=== PATIENT | male | born 1970 | race Caucasian/White ===

== ENCOUNTER 2020-11-12 14:26 | Emergency (ER) | payer OTHER, BC ==
[~2020-11-12] VITALS: Ht 177.8 cm; Wt 102.3 kg
[2020-11-12] MEDS ORDERED: HYDROMORPHONE HCL 0.5 MG/ 0.5 ML SYRINGE (J1170 PER 1) IV PRN (15:25)
[2020-11-12] MEDS ORDERED: KETOROLAC 30 MG/ML 1ML VIAL IV ONE (15:25)
[2020-11-12] MEDS ORDERED: NS 1,000 ML IV SCH (15:40)
[2020-11-12] MEDS ORDERED: propofoL 200 MG/20 ML VIAL IV.PROC PRN (15:55)
--- NOTE | 2020-11-12 15:58 | REP ---
INDICATION: trauma COMPARISON: None. TECHNIQUE: Single axillary view of the right shoulder FINDINGS: No obvious acute fracture or dislocation. Surrounding soft tissues are normal. IMPRESSION: No acute fracture or dislocation appreciated. <Electronically signed by Wicho King > 11/12/20 [id number]
--- NOTE | 2020-11-12 15:59 | REP ---
INDICATION: trauma COMPARISON: None. TECHNIQUE: Three views of the right elbow. FINDINGS: Acute fracture dislocation at the elbow joint with multiple fracture fragments. Further detail is somewhat limited due to positioning. However, fracture fragment seemed to be from the radial head and possibly proximal portion of the ulna. IMPRESSION: Fracture dislocation of the right elbow. <Electronically signed by Wicho King > 11/12/20 [id number]
--- NOTE | 2020-11-12 16:33 | REP ---
INDICATION: s/p reduction. COMPARISON: 11/12/2020 at 9 minutes past 3 p.m. and again at 3:36 p.m. TECHNIQUE: Total of 3 images were obtained. The 1st image an AP view was obtained at 4:10 p.m. the 2nd image a lateral view was obtained at 4:11 p.m. the 3rd image is a lateral view obtained at 4:18 p.m. FINDINGS: The 1st 2 images again show a comminuted fracture posterior dislocation of the elbow centrally unchanged from earlier today. The 3rd image shows the posterior dislocation to be reduced. Comminuted fracture is again noted and unchanged. There is a marked insignificant joint effusion unchanged. IMPRESSION: Reduction seen only on the 3rd image as described above. CT is recommended. <Electronically signed by Long Chilel > 11/12/20 2016
--- NOTE | 2020-11-12 17:06 | REP ---
INDICATION: trauma. COMPARISON: None. TECHNIQUE: Axial noncontrast images through the elbow with coronal and sagittal reformations. FINDINGS: Fracture fragments are identified arising from the radial head, coronoid process, and presumed from the medial humeral condyle. Surrounding soft tissue swelling and joint effusion noted. IMPRESSION: Comminuted fracture at the elbow with soft tissue swelling. <Electronically signed by Wicho King > 11/12/20 [id number]
[2020-11-12] MEDS ORDERED: HYDR-3713 PO (17:42)
[2020-11-12 17:59] VITALS: BP 182/83
== END 2020-11-12 18:37 | disposition home or self-care (01) ==
LOC: M ED 14:26 → EDBD 14:26 → M ED 18:37
DX: S53.104A Unspecified dislocation of right ulnohumeral joint, initial encounter (principal); S42.401A Unspecified fracture of lower end of right humerus, initial encounter for closed fracture; W11.XXXA Fall on and from ladder, initial encounter; Y92.149 Unspecified place in prison as the place of occurrence of the external cause; Y93.9 Activity, unspecified; Y99.0 Civilian activity done for income or pay
CPT/HCPCS: 24600; 73030; 73070; 73080; 73200; 93041; 94760; 96361; 96374; 96375; 99291; J1170; J1885

== ENCOUNTER → 2020-11-18 | Outpatient (CLI) | payer OTHER, BC ==
[~2020-11-18] MED LIST: HYDR-3713 PO
--- NOTE | 2020-11-19 06:03 | ECGEPIP ---
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
== END ==
LOC: M EKG 16:56
PROVIDERS: ATTEND Orthopaedic Surgery
DX: Z01.818 Encounter for other preprocedural examination (principal)

== ENCOUNTER → 2022-03-30 | Outpatient (REF) | payer OTHER, BC ==
[2022-03-30 12:41] LABS: HEMATOCRIT 43.2 % (42.0-52.0); HEMOGLOBIN 13.8 g/dl (13.5-17.5); MEAN CORPUSCULAR HEMOGLOBIN 29.7 pg (27.0-33.0); MEAN CORPUSCULAR HGB CONC 31.9 g/dl (32.0-36.5); MEAN CORPUSCULAR VOLUME 92.9 fl (80.0-96.0); PLATELET COUNT, AUTOMATED 193 10^3/uL (150-450); RED BLOOD COUNT 4.65 10^6/uL (4.30-6.10)
[2022-03-30 13:33] LABS: ALT/SGPT 27 U/L (12-78); BILIRUBIN,TOTAL 0.6 MG/DL (0.2-1.0); BLOOD UREA NITROGEN 16 MG/DL (7-18); CALCIUM LEVEL 9.1 MG/DL (8.5-10.1); CARBON DIOXIDE LEVEL 25 MEQ/L (21-32); CHLORIDE LEVEL 107 MEQ/L (98-107); CREATININE FOR GFR 1.11 MG/DL (0.70-1.30); GLOMERULAR FILTRATION RATE > 60.0 (>56); GLUCOSE, FASTING 110 MG/DL (70-100); POTASSIUM SERUM 4.7 MEQ/L (3.5-5.1); SODIUM LEVEL 139 MEQ/L (136-145); TOTAL PROTEIN 6.9 GM/DL (6.4-8.2)
== END ==
LOC: M LABDRAWC 11:28
PROVIDERS: ATTEND Student in an Organized Health Care Education/Training Program
DX: Z01.812 Encounter for preprocedural laboratory examination (principal)

== ENCOUNTER → 2022-03-30 | Outpatient (REF) | payer OTHER, BC | LOC: M LABDRAWC 11:25 | PROVIDERS: ATTEND Internal Medicine Endocrinology, Diabetes & Metabolism | DX: D35.02 Benign neoplasm of left adrenal gland (principal) ==

== ENCOUNTER → 2022-06-24 | Outpatient (REF) | payer OTHER ==
[2022-06-24 12:19] LABS: ALBUMIN 4.5 G/DL (3.2-5.2); ALKALINE PHOSPHATASE 59 U/L (46-116); ALT/SGPT 27 U/L (7.0-40); AST/SGOT 19 U/L (<34); BILIRUBIN,TOTAL 0.5 MG/DL (0.3-1.2); BLOOD UREA NITROGEN 13 MG/DL (9-23); CALCIUM LEVEL 9.8 MG/DL (8.5-10.1); CARBON DIOXIDE LEVEL 28 MMOL/L (20-31); CHLORIDE LEVEL 107 MMOL/L (98-107); CHOLESTEROL LEVEL 191 MG/DL (<200); CHOLESTEROL RISK RATIO 2.47 (<5); GLOMERULAR FILTRATION RATE > 60.0 (>56); GLUCOSE, FASTING 94 MG/DL (60-100); HDL CHOLESTEROL 77.3 MG/DL (>40); LDL CHOLESTEROL 102.9 MG/DL (<100); NON-HDL-C 114 MG/DL; POTASSIUM SERUM 4.7 MMOL/L (3.5-5.1); SODIUM LEVEL 142 MMOL/L (136-145); TOTAL PROTEIN 7.2 G/DL (5.7-8.2); TRIGLYCERIDES LEVEL 54 MG/DL (<150)
== END ==
LOC: M SFHCCLAY 09:20
PROVIDERS: ATTEND Nurse Practitioner Family
DX: Z90.49 Acquired absence of other specified parts of digestive tract (principal); Z87.19 Personal history of other diseases of the digestive system; N28.1 Cyst of kidney, acquired; E27.8 Other specified disorders of adrenal gland; Z80.42 Family history of malignant neoplasm of prostate
CPT/HCPCS: 80053; 80061; G0103

== ENCOUNTER → 2023-01-12 | Outpatient (CLI) | payer BC, OTHER ==
[~2023-01-12] MED LIST changes: +ISOVUE-370 76% 100ML VIAL As Ordered ONE
== END ==
LOC: M RAD 16:17
PROVIDERS: ATTEND Urology
DX: N28.1 Cyst of kidney, acquired (principal); E27.8 Other specified disorders of adrenal gland
CPT/HCPCS: 74178; Q9967

== ENCOUNTER → 2023-06-23 | Outpatient (REF) | payer BC, OTHER ==
[~2023-06-23] MED LIST changes: -ISOVUE-370 76% 100ML VIAL As Ordered ONE
[2023-06-23 18:43] LABS: ALBUMIN 4.2 G/DL (3.2-5.2); ALKALINE PHOSPHATASE 61 U/L (46-116); ALT/SGPT 25 U/L (7.0-40); AST/SGOT 19 U/L (<34); BILIRUBIN,TOTAL 0.7 MG/DL (0.3-1.2); BLOOD UREA NITROGEN 18 MG/DL (9-23); CALCIUM LEVEL 9.2 MG/DL (8.5-10.1); CARBON DIOXIDE LEVEL 28 MMOL/L (20-31); CHLORIDE LEVEL 107 MMOL/L (98-107); CHOLESTEROL LEVEL 177 MG/DL (<200); CHOLESTEROL RISK RATIO 2.49 (<5); CREATININE FOR GFR 1.03 MG/DL (0.70-1.30); GLOMERULAR FILTRATION RATE > 60.0 (>56); GLUCOSE, FASTING 102 MG/DL (60-100); POTASSIUM SERUM 4.6 MMOL/L (3.5-5.1); SODIUM LEVEL 140 MMOL/L (136-145); TOTAL PROTEIN 6.7 G/DL (5.7-8.2); TRIGLYCERIDES LEVEL 70 MG/DL (<150)
== END ==
LOC: M SFHCCLAY 09:26
PROVIDERS: ATTEND Nurse Practitioner Family
DX: N28.1 Cyst of kidney, acquired (principal); E27.8 Other specified disorders of adrenal gland; Z80.42 Family history of malignant neoplasm of prostate; Z87.19 Personal history of other diseases of the digestive system; Z90.49 Acquired absence of other specified parts of digestive tract

== ENCOUNTER 2023-11-10 03:00 | Inpatient (IN) | payer BC, OTHER ==
[2023-11-10] VITALS (7 sets, daily range): BP systolic 107–141; BP diastolic 68–88; TEMP 97–100.5; O2SAT 93–96
[~2023-11-10] VITALS: Ht 177.8 cm; Wt 106.6 kg
[2023-11-10] MEDS ORDERED: ONDANSETRON 4MG 2ML VIAL As Ordered ONE (04:05)
[2023-11-10] MEDS ORDERED: MORPHINE 4 MG/ML 1ML VIAL As Ordered ONE (04:05)
[2023-11-10 04:09] LABS: BASO % 0.2 % (0.0-1.0); HEMATOCRIT 41.7 % (42.0-52.0); HEMOGLOBIN 14.6 g/dl (13.5-17.5); LYMPH # 0.7 10^3/uL (1.5-5.0); LYMPH % 5.1 % (24.0-44.0); MEAN CORPUSCULAR HEMOGLOBIN 30.6 pg (27.0-33.0); MEAN CORPUSCULAR VOLUME 87.4 fl (80.0-96.0); MONO % 7.3 % (2.0-8.0); NEUTROPHILS # 11.9 10^3/uL (1.5-8.5); NEUTROPHILS % 87.1 % (36.0-66.0); PLATELET COUNT, AUTOMATED 200 10^3/uL (150-450); RED BLOOD COUNT 4.77 10^6/uL (4.30-6.10); WHITE BLOOD COUNT 13.6 10^3/uL (4.0-10.0)
[2023-11-10 04:15] LABS: ALKALINE PHOSPHATASE 67 U/L (46-116); ALT/SGPT 29 U/L (7.0-40); AST/SGOT 43 U/L (<34); BILIRUBIN,DIRECT 0.3 MG/DL (<0.4); BILIRUBIN,TOTAL 1.2 MG/DL (0.3-1.2); BLOOD UREA NITROGEN 12 MG/DL (9-23); CALCIUM LEVEL 8.4 MG/DL (8.5-10.1); CARBON DIOXIDE LEVEL 23 MMOL/L (20-31); CHLORIDE LEVEL 100 MMOL/L (98-107); CREATININE FOR GFR 0.87 MG/DL (0.70-1.30); GLOMERULAR FILTRATION RATE > 60.0 (>56); GLUCOSE, FASTING 151 MG/DL (60-100); LIPASE 32 U/L (12-53); POTASSIUM SERUM 5.4 MMOL/L (3.5-5.1); SODIUM LEVEL 133 MMOL/L (136-145)
[2023-11-10] MEDS: MORPHINE 4 MG/ML 1ML VIAL IV ONE ×2 (04:15→10:28)
[2023-11-10] MEDS: ONDANSETRON 4MG 2ML VIAL IV ONE ×2 (04:15→10:28)
[2023-11-10] MEDS ORDERED: ISOVUE-370 76% 100ML VIAL As Ordered ONE (10:02)
[2023-11-10] MEDS: PIPERACILLIN/TAZOBACTAM SOD 3.375 GM in D5W MINI-BAG PLUS 50 ML IV ONE (10:52)
[2023-11-10] MEDS: NS 1,000 ML IV ONE (10:52)
[2023-11-10] MEDS: ACETAMINOPHEN *IV* 1,000 MG in IV 1 EA IV ONE (10:53)
[2023-11-10] MEDS ORDERED: ONDANSETRON 4MG 2ML VIAL IV PRN (12:05)
[2023-11-10] MEDS ORDERED: ACETAMINOPHEN TAB 650MG DOSE (2X325MG) PO PRN (12:05)
[2023-11-10] MEDS ORDERED: PERCOCET 5MG/325MG TAB PO PRN (13:20)
[2023-11-10] MEDS: NS 1,000 ML IV SCH (13:53)
[2023-11-10] MEDS: PERCOCET 5MG/325MG TAB PO PRN (13:55)
[2023-11-10] MEDS: MORPHINE 2 MG/ML 1ML VIAL IV PRN (15:12)
[2023-11-10] MEDS: NS 500 ML IV ONE (15:12)
[2023-11-10] MEDS ORDERED: HOME MED LIST COMPLETE! XX SCH (15:20)
[2023-11-10 15:45] LABS: PROCALCITONIN 0.07 ng/ml
[2023-11-10 15:53] LABS: HEPATITIS B SURFACE ANTIGEN NEGATIVE (NEGATIVE)
[2023-11-10 16:14] LABS: HEPATITIS B CORE ANTIBODY IGM NEGATIVE (NEGATIVE); HEPATITIS C VIRUS ABY INDEX 0.06 INDEX (<0.8)
[2023-11-10] MEDS: PIPERACILLIN/TAZOBACTAM SOD 3.375 GM in D5W MINI-BAG PLUS 50 ML IV SCH (17:00)
[2023-11-10] MEDS: ZOSYN 3.375GM VIAL As Ordered ONE (17:13)
[2023-11-10] MEDS ORDERED: fentaNYL 100 MCG/2 ML INJECTION As Ordered ONE (17:31)
[2023-11-10] MEDS ORDERED: MIDAZOLAM INJ 2MG/2ML VIAL As Ordered ONE (17:31)
[2023-11-10] MEDS ORDERED: ACETAMINOPHEN 1000MG 100ML IV BAG As Ordered ONE (17:31)
[2023-11-10] MEDS ORDERED: dexmedeTOMIDine (4MCG/ML)200MCG/50ML BTL (PRECEDEX) As Ordered ONE (17:31)
[2023-11-10] MEDS ORDERED: LIDOCAINE 2% 100MG/5ML SDV (FOR ANES.) As Ordered ONE (17:31)
[2023-11-10] MEDS ORDERED: propofoL 200 MG/20 ML VIAL As Ordered ONE (17:31)
[2023-11-10] MEDS ORDERED: ROCURONIUM BROMIDE 50MG/5ML VIAL As Ordered ONE (17:31)
[2023-11-10] MEDS ORDERED: HYDROmorphone HCL 2MG/ML 1ML VIAL As Ordered ONE (18:11)
[2023-11-10] MEDS ORDERED: SUGAMMADEX SODIUM 500 MG/5 ML VIAL (BRIDION) As Ordered ONE (18:38)
[2023-11-10] MEDS ORDERED: KETOROLAC 60MG 2ML VIAL As Ordered ONE (18:38)
[2023-11-10] MEDS ORDERED: oxyCODONE 5MG TAB PO PRN (19:00)
[2023-11-10] MEDS: ACETAMINOPHEN *IV* 1,000 MG in IV 1 EA IV SCH (21:13)
[2023-11-11] VITALS (8 sets, daily range): BP systolic 99–142; BP diastolic 61–85; TEMP 97.4–100.2; O2SAT 92–96
[2023-11-11 05:59] LABS: HEMATOCRIT 39.3 % (42.0-52.0); HEMOGLOBIN 13.2 g/dl (13.5-17.5); MEAN CORPUSCULAR HEMOGLOBIN 30.2 pg (27.0-33.0); MEAN CORPUSCULAR HGB CONC 33.6 g/dl (32.0-36.5); MEAN CORPUSCULAR VOLUME 89.9 fl (80.0-96.0); PLATELET COUNT, AUTOMATED 146 10^3/uL (150-450); RED BLOOD COUNT 4.37 10^6/uL (4.30-6.10); WHITE BLOOD COUNT 7.7 10^3/uL (4.0-10.0)
[2023-11-11 06:40] LABS: ATYPICAL LYMPH 2 % (0-5); LYMPHOCYTES 10 % (16-44); METAMYELOCYTES 1 % (0-0); MONOCYTES 3 % (0-5); NEUTROPHILS 65 % (28-66)
[2023-11-11 06:42] LABS: PLATELET CLUMPS SMALL AMT; PLATELET ESTIMATE NORMAL (NORMAL)
[2023-11-11 06:52] LABS: ALBUMIN 2.5 G/DL (3.2-5.2); ALKALINE PHOSPHATASE 48 U/L (46-116); ALT/SGPT 15 U/L (7.0-40); AST/SGOT 9 U/L (<34); BILIRUBIN,DIRECT 0.6 MG/DL (<0.4); BLOOD UREA NITROGEN 13 MG/DL (9-23); CALCIUM LEVEL 7.9 MG/DL (8.5-10.1); CARBON DIOXIDE LEVEL 25 MMOL/L (20-31); CHLORIDE LEVEL 106 MMOL/L (98-107); CREATININE FOR GFR 0.98 MG/DL (0.70-1.30); GLOMERULAR FILTRATION RATE > 60.0 (>56); GLUCOSE, FASTING 111 MG/DL (60-100); MAGNESIUM LEVEL 1.6 MG/DL (1.8-2.4); POTASSIUM SERUM 4.2 MMOL/L (3.5-5.1); SODIUM LEVEL 138 MMOL/L (136-145)
[2023-11-11] MEDS ORDERED: ENOXAPARIN 40MG/0.4ML SYRINGE (J1650 PER 10MG) SC SCH (09:00)
[2023-11-11] MEDS: MAG SULF 1GM/100ML (MAG RUN) 1 GM in IV 1 EA IV SCH (09:14)
[2023-11-11] MEDS: ENOXAPARIN 40MG/0.4ML SYRINGE (J1650 PER 10MG) SC SCH (12:33)
[2023-11-12 06:10] VITALS: BP 135/87; TEMP 99.3; O2SAT 94
[2023-11-12 06:25] LABS: BASO % 0.1 % (0.0-1.0); EOS % 0.4 % (0.0-3.0); HEMOGLOBIN 12.1 g/dl (13.5-17.5); LYMPH # 0.5 10^3/uL (1.5-5.0); LYMPH % 7.5 % (24.0-44.0); MEAN CORPUSCULAR HGB CONC 33.6 g/dl (32.0-36.5); MEAN CORPUSCULAR VOLUME 89.3 fl (80.0-96.0); MONO # 0.4 10^3/uL (0.0-0.8); MONO % 5.9 % (2.0-8.0); NEUTROPHILS # 6.1 10^3/uL (1.5-8.5); NEUTROPHILS % 85.8 % (36.0-66.0); PLATELET COUNT, AUTOMATED 147 10^3/uL (150-450); RED BLOOD COUNT 4.03 10^6/uL (4.30-6.10); WHITE BLOOD COUNT 7.1 10^3/uL (4.0-10.0)
[2023-11-12 07:21] LABS: ALBUMIN 2.3 G/DL (3.2-5.2); ALKALINE PHOSPHATASE 56 U/L (46-116); ALT/SGPT 22 U/L (7.0-40); AST/SGOT 19 U/L (<34); BILIRUBIN,DIRECT 0.3 MG/DL (<0.4); BILIRUBIN,TOTAL 0.6 MG/DL (0.3-1.2); BLOOD UREA NITROGEN 22 MG/DL (9-23); CALCIUM LEVEL 7.8 MG/DL (8.5-10.1); CARBON DIOXIDE LEVEL 23 MMOL/L (20-31); CHLORIDE LEVEL 108 MMOL/L (98-107); CREATININE FOR GFR 0.95 MG/DL (0.70-1.30); GLOMERULAR FILTRATION RATE > 60.0 (>56); GLUCOSE, FASTING 122 MG/DL (60-100); MAGNESIUM LEVEL 2.1 MG/DL (1.8-2.4); POTASSIUM SERUM 3.7 MMOL/L (3.5-5.1); SODIUM LEVEL 138 MMOL/L (136-145); TOTAL PROTEIN 4.9 G/DL (5.7-8.2)
[2023-11-12 14:00] VITALS: BP 134/90; TEMP 98.8; O2SAT 95
[2023-11-12 20:00] VITALS: BP 137/90; TEMP 99.5; O2SAT 98
[2023-11-12] MEDS: SIMETHICONE 80MG CHEW TAB PO PRN (20:11)
[2023-11-12] MEDS: PANTOPRAZOLE 40MG TAB (PROTONIX) PO ONE (23:31)
[2023-11-13 04:00] VITALS: BP 144/89; TEMP 98.8; O2SAT 95
[2023-11-13 06:57] LABS: BASO % 0.3 % (0.0-1.0); EOS # 0.1 10^3/uL (0.0-0.5); EOS % 0.7 % (0.0-3.0); HEMATOCRIT 29.1 % (42.0-52.0); LYMPH # 0.6 10^3/uL (1.5-5.0); LYMPH % 8.3 % (24.0-44.0); MEAN CORPUSCULAR HEMOGLOBIN 30.5 pg (27.0-33.0); MEAN CORPUSCULAR HGB CONC 33.7 g/dl (32.0-36.5); MEAN CORPUSCULAR VOLUME 90.7 fl (80.0-96.0); MONO # 0.6 10^3/uL (0.0-0.8); NEUTROPHILS # 5.7 10^3/uL (1.5-8.5); PLATELET COUNT, AUTOMATED 200 10^3/uL (150-450); RED BLOOD COUNT 3.21 10^6/uL (4.30-6.10); WHITE BLOOD COUNT 7.1 10^3/uL (4.0-10.0)
[2023-11-13 06:59] LABS: HEMOGLOBIN 9.8 g/dl (13.5-17.5)
[2023-11-13 07:18] LABS: C REACTIVE PROTEIN QUANTITATIV 17.5 MG/DL (<1.0)
[2023-11-13 07:20] LABS: ALBUMIN 2.1 G/DL (3.2-5.2); BILIRUBIN,DIRECT 0.1 MG/DL (<0.4); BILIRUBIN,TOTAL 0.3 MG/DL (0.3-1.2); TOTAL PROTEIN 4.5 G/DL (5.7-8.2)
[2023-11-13 07:31] LABS: BLOOD UREA NITROGEN 31 MG/DL (9-23); CALCIUM LEVEL 7.4 MG/DL (8.5-10.1); CARBON DIOXIDE LEVEL 24 MMOL/L (20-31); CHLORIDE LEVEL 110 MMOL/L (98-107); CREATININE FOR GFR 0.83 MG/DL (0.70-1.30); GLOMERULAR FILTRATION RATE > 60.0 (>56); GLUCOSE, FASTING 114 MG/DL (60-100); MAGNESIUM LEVEL 1.9 MG/DL (1.8-2.4); SODIUM LEVEL 140 MMOL/L (136-145)
[2023-11-13] MEDS ORDERED: ACET1TAB55 PO (08:31)
[2023-11-13] MEDS ORDERED: METR-265 PO ×2 (08:31→08:57)
[2023-11-13] MEDS ORDERED: CIPR-249 PO (08:32)
[2023-11-13] MEDS ORDERED: PANT40TA29 PO (08:57)
[2023-11-13] MEDS ORDERED: PROBCAP14 PO (08:57)
[2023-11-13] MEDS: PANTOPRAZOLE 40MG TAB (PROTONIX) PO SCH (09:11)
== END 2023-11-13 12:25 | disposition home or self-care (01) | DRG 710 ==
LOC: M ED 03:00 → M ED INP 11:55 → M PCU 12:57 → M MSPAV 11-11 18:50
PROVIDERS: ADMIT Internal Medicine; ATTEND Internal Medicine
PROC: 0DNW0ZZ Release Peritoneum, Open Approach (ICD-10-PCS; 2023-11-10)
PROC: 0DTJ0ZZ Resection of Appendix, Open Approach (ICD-10-PCS; principal; 2023-11-10 12:30)
DX: A41.9 Sepsis, unspecified organism (principal); K35.31 Acute appendicitis with localized peritonitis and gangrene, without perforation; K21.9 Gastro-esophageal reflux disease without esophagitis; Z53.31 Laparoscopic surgical procedure converted to open procedure; K66.0 Peritoneal adhesions (postprocedural) (postinfection); K57.90 Diverticulosis of intestine, part unspecified, without perforation or abscess without bleeding; Z87.891 Personal history of nicotine dependence; K35.32 Acute appendicitis with perforation, localized peritonitis, and gangrene, without abscess

== ENCOUNTER → 2024-06-25 | Outpatient (REF) | payer BC ==
[~2024-06-25] MED LIST changes: +ACET1TAB55 PO; +CIPR-249 PO; +METR-265 PO; +PANT40TA29 PO; +PROBCAP14 PO
[2024-06-25 11:48] LABS: ALBUMIN 4.2 G/DL (3.2-5.2); ALKALINE PHOSPHATASE 54 U/L (40-129); ALT/SGPT 32 U/L (7.0-40); AST/SGOT 21 U/L (<34); BILIRUBIN,TOTAL 0.5 MG/DL (0.3-1.2); BLOOD UREA NITROGEN 17 MG/DL (9-23); CALCIUM LEVEL 9.8 MG/DL (8.5-10.1); CARBON DIOXIDE LEVEL 29 MMOL/L (20-31); CHLORIDE LEVEL 106 MMOL/L (98-107); CHOLESTEROL LEVEL 178 MG/DL (<200); CHOLESTEROL RISK RATIO 2.75 (<5); CREATININE FOR GFR 1.03 MG/DL (0.70-1.30); GLOMERULAR FILTRATION RATE > 60.0 (>56); GLUCOSE, FASTING 106 MG/DL (60-100); HDL CHOLESTEROL 64.5 MG/DL (>40); LDL CHOLESTEROL 93.7 MG/DL (<100); NON-HDL-C 113.5 MG/DL; POTASSIUM SERUM 4.5 MMOL/L (3.5-5.1); PSA SCREENING 0.64 NG/ML (< 4.00); SODIUM LEVEL 142 MMOL/L (136-145); TOTAL PROTEIN 7.4 G/DL (5.7-8.2); TRIGLYCERIDES LEVEL 99 MG/DL (<150)
[2024-06-25 12:06] LABS: HEMOGLOBIN A1c 5.4 % (4.0-6.0)
== END ==
LOC: M SFHCCLAY 08:58
PROVIDERS: ATTEND Nurse Practitioner Family
DX: Z00.00 Encounter for general adult medical examination without abnormal findings (principal); N28.1 Cyst of kidney, acquired; E27.8 Other specified disorders of adrenal gland; Z80.42 Family history of malignant neoplasm of prostate; Z87.19 Personal history of other diseases of the digestive system; Z90.49 Acquired absence of other specified parts of digestive tract
CPT/HCPCS: 80053; 80061; 83036; G0103